=== PATIENT | female | born 1970 | race Asian ===

== ENCOUNTER → 2016-12-01 | Outpatient (CLI) | payer BC | END | disposition home or self-care (01) | LOC: RADPV 14:53 | PROVIDERS: ATTEND Internal Medicine | DX: R53.83 Other fatigue (principal) | CPT/HCPCS: 71020 ==

== ENCOUNTER 2017-01-20 08:04 | Emergency (ER) | payer SELFPAY ==
[~2017-01-20] VITALS: Ht 165.1 cm; Wt 79.5 kg
[2017-01-20] MEDS ORDERED: IBUPROFEN 600 MG TABLET PO ONE (08:30)
[2017-01-20 09:21] VITALS: BP 136/79
== END 2017-01-20 10:17 | disposition home or self-care (01) ==
LOC: EMS 08:05
DX: R51 Headache (principal); F17.210 Nicotine dependence, cigarettes, uncomplicated
CPT/HCPCS: 70450; 99284

== ENCOUNTER → 2017-02-07 | Outpatient (CLI) | payer BC | END | disposition home or self-care (01) | LOC: RADPV 13:55 | PROVIDERS: ATTEND Internal Medicine | DX: M50.322 Other cervical disc degeneration at C5-C6 level (principal); M50.323 Other cervical disc degeneration at C6-C7 level; M43.12 Spondylolisthesis, cervical region; M12.88 Other specific arthropathies, not elsewhere classified, other specified site; M46.02 Spinal enthesopathy, cervical region | CPT/HCPCS: 72040 ==

== ENCOUNTER 2017-07-14 08:40 | Emergency (ER) | payer BC ==
[~2017-07-14] VITALS: Ht 165.1 cm; Wt 77.3 kg
[2017-07-14] MEDS ORDERED: [UNRECOGNIZED DRUG - REMARK] PO (08:58)
[2017-07-14] MEDS ORDERED: ATOR10TA84 PO (08:58)
[2017-07-14] MEDS ORDERED: ACET-784 PO (08:58)
[2017-07-14 09:19] VITALS: BP 140/100
[2017-07-14] MEDS ORDERED: SODIUM CHLORIDE 0.9% 1,000 ML IV ONE (09:19)
[2017-07-14] MEDS ORDERED: METOCLOPRAMIDE HCL 5 MG/ML 2 ML VIAL IVP ONE (09:30)
[2017-07-14] MEDS ORDERED: DiphenhydrAMINE HCL 50 MG/ML VIAL IVP ONE (09:30)
[2017-07-14] MEDS ORDERED: KETOROLAC TROMETHAMINE 30 MG/ML VIAL IVP ONE (09:30)
== END 2017-07-14 11:03 | disposition home or self-care (01) ==
LOC: EMS 08:41
DX: R51 Headache (principal); F17.210 Nicotine dependence, cigarettes, uncomplicated; E78.00 Pure hypercholesterolemia, unspecified
CPT/HCPCS: 96374; 96375; 99284; 99406; J1200; J1885; J2765; J7030

== ENCOUNTER → 2017-11-03 | Outpatient (CLI) | payer BC ==
[~2017-11-03] MED LIST: ACET-784 PO; ATOR10TA84 PO; [UNRECOGNIZED DRUG - REMARK] PO
[2017-11-03 12:32] LABS: BASOPHILS % (AUTO) 0.5 % (0.0-2.0); EOSINOPHILS % (AUTO) 0.4 % (1.0-6.0); HEMOGLOBIN 14.2 g/dL (12.0-16.0); LYMPHOCYTES # (AUTO) 1.3 K/uL (1.0-4.8); LYMPHOCYTES % (AUTO) 22.5 % (22.0-44.0); MEAN CORPUSCULAR HEMOGLOBIN 33.5 pg (26.0-34.0); MEAN CORPUSCULAR HGB CONC 34.7 G/dL (31.0-37.0); MEAN CORPUSCULAR VOLUME 97 fL (80-100); MONOCYTES # (AUTO) 0.5 K/uL (0.1-1.0); MONOCYTES % (AUTO) 8.3 % (2.0-9.0); NEUTROPHILS % (AUTO) 68.3 % (40.0-70.0); PLATELET COUNT (AUTO) 204 K/uL (150-450); RED BLOOD CELL COUNT(AUTO) 4.24 MIL/uL (4.00-5.20); RED CELL DISTRIBUTION WIDTH 13.4 % (11.5-14.5)
[2017-11-03 12:51] LABS: FOLATE SERUM 23.9 ng/mL (5.4-)
[2017-11-03 13:10] LABS: ALANINE AMINOTRANSFERASE 49 U/L (12-78); ALBUMIN 4.1 g/dL (3.4-5.0); ALKALINE PHOSPHATASE 73 U/L (46-116); ANION GAP 6 mmol/L (8-16); ASPARTATE AMINOTRANSFERASE 28 U/L (15-37); BILIRUBIN,TOTAL 0.4 mg/dL (0.1-1.0); CALCIUM, TOTAL 8.9 mg/dL (8.8-10.5); CARBON DIOXIDE 31 mmol/L (22-29); CHLORIDE 104 mmol/L (98-107); CREATININE 0.73 mg/dL (0.60-1.30); GLOMERULAR FILTR. RATE CALC > 60 mL/min (>60); GLUCOSE,RANDOM 106 mg/dL (70-110); POTASSIUM 4.2 mmol/L (3.5-5.1); SODIUM SERUM 141 mmol/L (136-145); THYROID STIMULATING HORMONE 0.74 uIU/mL (0.36-3.74); TOTAL PROTEIN, SERUM 7.9 g/dL (6.4-8.2); UREA NITROGEN, BLOOD 22 mg/dL (7-18)
[2017-11-03 13:43] LABS: ERYTHROCYTE SEDIMENTATION RATE 6 MM/HR (0-20)
== END | disposition home or self-care (01) ==
LOC: LABPV 11:59
PROVIDERS: ATTEND Psychiatry & Neurology Neurology
DX: D51.9 Vitamin B12 deficiency anemia, unspecified (principal); R70.0 Elevated erythrocyte sedimentation rate; R76.0 Raised antibody titer; R73.09 Other abnormal glucose; R53.1 Weakness; R53.83 Other fatigue
CPT/HCPCS: 82607; 82746; 84443; 85651; 86038